=== PATIENT | female | born 2000 | race Caucasian/White ===

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

== ENCOUNTER 2022-08-21 11:17 | Emergency (ER) | payer OTHER ==
[2022-08-21 11:22] VITALS: BP 124/84; PULSE 125; RESP 18; TEMP 98.6; BMI 26.4
[2022-08-21] MEDS ORDERED: IBUPROFEN 600 MG TABLET (FP) PO ONE ×2 (11:41→12:00)
== END 2022-08-21 12:50 | disposition home or self-care (01) ==
LOC: JERFT 11:17 → JER 11:17 → JERFT 12:50
DX: S93.602A Unspecified sprain of left foot, initial encounter (principal); X50.0XXA Overexertion from strenuous movement or load, initial encounter
CPT/HCPCS: 73610-TC-LT-FY; 73630-TC-LT; 99283-25